=== PATIENT | female | born 1950 | race Caucasian/White ===

== ENCOUNTER 2016-12-24 16:26 | Emergency (ER) | payer MEDICAID ==
[2016-12-24 19:28] LABS: BASOPHILS 0.3 % (0-2); EOSINOPHILS 2.6 % (0-7); HEMATOCRIT 39.5 % (36.0-48.0); HEMOGLOBIN 12.9 g/dL (12-16); IMMATURE GRANULOCYTES 0.1 % (0-5); LYMPHOCYTES 33.5 % (15-50); MCH 30.1 pg (26.0-34.0); MCHC 32.7 g/dL (31.0-37.0); MCV 92.1 fL (80.0-100.0); MEAN PLATELET VOLUME 9.7 fL (7.4-10.4); MONOCYTES 9.2 % (2-11); NEUTROPHILS 54.3 % (40-80); PLATELET COUNT 356 10x3/uL (130-400); RBC 4.29 10x6/uL (4.00-5.40); RDW 13.7 % (11.5-14.5); WBC 7.2 10x3/uL (4.8-10.8)
[2016-12-24 20:00] LABS: ALBUMIN 3.3 g/dL (3.4-5.0); ANION GAP 10.2 mmol/L (8-16); BILIRUBIN - TOTAL 0.22 mg/dL (0.2-1.3); CALCIUM 8.9 mg/dL (8.5-10.1); CARBON DIOXIDE 26.3 mmol/L (21.0-32.0); CREATININE - SERUM 1.2 mg/dL (0.6-1.3); POTASSIUM - SERUM 4.5 mmol/L (3.5-5.1)
== END 2016-12-24 20:20 | disposition home or self-care (01) ==
LOC: D.ER 16:26
PROVIDERS: Physician Assistant Medical
DX: S70.02XA Contusion of left hip, initial encounter (principal); X58.XXXA Exposure to other specified factors, initial encounter; Y93.89 Activity, other specified; Y92.017 Garden or yard in single-family (private) house as the place of occurrence of the external cause; S60.221A Contusion of right hand, initial encounter; E11.9 Type 2 diabetes mellitus without complications

== ENCOUNTER 2018-02-27 06:40 | Outpatient (CLI) | payer MEDICARE | END 2018-02-27 23:59 | disposition home or self-care (01) | LOC: D.MAMMO 06:40 | DX: Z12.31 Encounter for screening mammogram for malignant neoplasm of breast (principal) ==

== ENCOUNTER → 2019-07-31 15:00 | Outpatient (CLI) | payer OTHER | END | disposition home or self-care (01) | LOC: D.MAMMO 14:45 | PROVIDERS: ATTEND Registered Nurse Emergency | DX: Z12.31 Encounter for screening mammogram for malignant neoplasm of breast (principal) ==

== ENCOUNTER 2020-12-09 15:15 | Outpatient (CLI) | payer OTHER | END 2020-12-09 16:15 | disposition home or self-care (01) | LOC: D.MAMMO 15:15 | PROVIDERS: ATTEND Registered Nurse Emergency | DX: Z12.31 Encounter for screening mammogram for malignant neoplasm of breast (principal) ==